=== PATIENT | female | born 1945 | race Asian ===

== ENCOUNTER 2018-08-23 16:24 | Outpatient (CLI) | payer OTHER ==
[~2018-08-23 16:24] MED LIST: ACCUPRIL40 MG PO; ASPI-93 PO; ASPI325T40; ASPI325T40 PO; CARV12.5 PO; DIAZ5TAB20 PO; LORTAB 10/5001 EACH PO; OXYC5TAB24 PO; UNITH DIRECT150 MCG PO; ZOLP10TA2 PO
== END 2018-08-23 16:33 | disposition short-term general hospital (02) ==
LOC: AMB 16:24
DX: R07.89 Other chest pain (principal); R10.84 Generalized abdominal pain
CPT/HCPCS: A0425; A0427

== ENCOUNTER 2018-08-23 16:35 | Emergency (ER) | payer OTHER ==
[~2018-08-23] VITALS: Ht 172.7 cm; Wt 119.8 kg
[2018-08-23 18:02] LABS: PLATELET COUNT 281 K/uL (152-353)
[2018-08-23 18:35] LABS: POTASSIUM 4.1 mmol/L (3.6-5.2); SODIUM 143 mmol/L (136-145)
[2018-08-23 20:28] VITALS: BP 138/67; TEMP 98
== END 2018-08-23 20:28 | disposition home or self-care (01) ==
LOC: ED 16:35
PROVIDERS: Emergency Medicine
DX: R10.9 Unspecified abdominal pain (principal)
CPT/HCPCS: 36415; 74022; 80053; 81000; 82150; 82550; 82553; 83690; 84484; 85027; 93005; 99283

== ENCOUNTER 2019-11-27 09:02 | Emergency (ER) | payer OTHER ==
[~2019-11-27] VITALS: Ht 172.7 cm; Wt 123.4 kg
[2019-11-27 10:06] VITALS: BP 160/79; TEMP 97.5
== END 2019-11-27 10:08 | disposition home or self-care (01) ==
LOC: ED 09:02
DX: M54.5 Low back pain (principal); G89.29 Other chronic pain; M62.830 Muscle spasm of back
CPT/HCPCS: 96372; 99283; J1885; J2360

== ENCOUNTER 2020-12-12 16:32 | Outpatient (CLI) | payer OTHER | END 2020-12-12 22:09 | disposition home or self-care (01) | LOC: CT 16:32 | PROVIDERS: ATTEND Nurse Practitioner Family | DX: R51.9 Headache, unspecified (principal); H53.9 Unspecified visual disturbance ==

== ENCOUNTER 2021-06-21 11:50 | Outpatient (CLI) | payer OTHER | END 2021-06-21 22:01 | disposition home or self-care (01) | LOC: CT 11:50 → RAD 11:50 | PROVIDERS: ATTEND Nurse Practitioner Family | DX: R06.02 Shortness of breath (principal); R07.89 Other chest pain; I50.9 Heart failure, unspecified; N18.9 Chronic kidney disease, unspecified; R53.83 Other fatigue | CPT/HCPCS: 36415; 82565; 84520 ==

== ENCOUNTER 2021-06-26 08:29 | Outpatient (CLI) | payer OTHER | END 2021-06-26 23:00 | disposition home or self-care (01) | LOC: NM 08:29 | PROVIDERS: ATTEND Internal Medicine | DX: R06.02 Shortness of breath (principal) | CPT/HCPCS: A9540; A9567 ==

== ENCOUNTER 2021-08-13 17:36 | Emergency (ER) | payer OTHER ==
[~2021-08-13] VITALS: Ht 172.7 cm; Wt 123.4 kg
[2021-08-13 19:02] VITALS: BP 169/74; TEMP 98
== END 2021-08-13 19:03 | disposition home or self-care (01) ==
LOC: ED 17:36
DX: M10.9 Gout, unspecified (principal)
CPT/HCPCS: 36415; 84550; 99283

== ENCOUNTER 2022-03-17 09:25 | Outpatient (CLI) | payer OTHER | END 2022-03-17 18:57 | disposition home or self-care (01) | LOC: RAD 09:25 | PROVIDERS: ATTEND Internal Medicine | DX: Z13.820 Encounter for screening for osteoporosis (principal); N95.8 Other specified menopausal and perimenopausal disorders; M19.90 Unspecified osteoarthritis, unspecified site ==

== ENCOUNTER 2022-12-26 22:24 | Emergency (ER) | payer OTHER ==
[~2022-12-26] VITALS: Ht 175.3 cm; Wt 120.2 kg
[2022-12-26 22:24] VITALS: TEMP 98.6
[2022-12-26 23:29] LABS: PLATELET COUNT 252 K/uL (152-353)
[2022-12-26 23:44] LABS: POTASSIUM 3.5 mmol/L (3.6-5.2)
[2022-12-26 23:55] LABS: PARTIAL THROMBOPLASTIN TIME 24.1 SECONDS (24.5-33.6)
[2022-12-27 03:00] VITALS: BP 151/67
== END 2022-12-27 03:00 | disposition home or self-care (01) ==
LOC: ED 22:24
PROVIDERS: Family Medicine
DX: I16.0 Hypertensive urgency (principal); R51.9 Headache, unspecified
CPT/HCPCS: 80053; 82550; 83880; 84484; 85027; 85610; 85730; 93005; 96374; 99284; J0360

== ENCOUNTER 2022-12-29 12:19 | Outpatient (CLI) | payer OTHER | END 2022-12-29 20:49 | disposition home or self-care (01) | LOC: RAD 12:19 | PROVIDERS: ATTEND Nurse Practitioner Family | DX: I10 Essential (primary) hypertension (principal); R51.9 Headache, unspecified; R42 Dizziness and giddiness ==

== ENCOUNTER 2023-02-11 12:42 | Emergency (ER) | payer OTHER ==
[~2023-02-11] VITALS: Ht 175.3 cm; Wt 116.1 kg
[2023-02-11 13:01] VITALS: BP 150/55; TEMP 98.1
== END 2023-02-11 14:22 | disposition home or self-care (01) ==
LOC: ED 12:42
DX: Z53.21 Procedure and treatment not carried out due to patient leaving prior to being seen by health care provider (principal)
CPT/HCPCS: 99281

== ENCOUNTER 2023-06-03 12:31 | Outpatient (CLI) | payer OTHER ==
[2023-06-03 14:11] LABS: PLATELET COUNT 269 K/uL (152-353)
[2023-06-03 14:18] LABS: POTASSIUM 4.1 mmol/L (3.6-5.2)
== END 2023-06-03 19:48 | disposition home or self-care (01) ==
LOC: RAD 12:31
PROVIDERS: ATTEND Internal Medicine Nephrology
DX: N18.4 Chronic kidney disease, stage 4 (severe) (principal); I50.32 Chronic diastolic (congestive) heart failure; Z79.899 Other long term (current) drug therapy
CPT/HCPCS: 36415; 80053; 80061; 83036; 85027; 93005